=== PATIENT | female | born 1945 | race Caucasian/White ===

== ENCOUNTER 2016-06-25 05:08 | Inpatient (IN) | payer OTHER ==
[2016-05-26 14:22] VITALS: BMI 28.0
--- NOTE | 2016-05-26 15:11 | PAT Medication Instructions ---
Service Date May 26, 2016. Current Home Medication List Acetaminophen (Tylenol), 325 MG PO Q8 PRN for Pain or Fever Aspirin (Aspirin 81), 81 MG PO 3XWK Cetirizine Hcl (Zyrtec), 10 MG PO QAM Cholecalciferol (Vitamin D3), 5,000 UNIT PO QAM Estradiol (Estradiol Transdermal System), 1 PATCH TD WK Hydrocortisone (Hydrocortisone 2.5%), 1 APPLN TOP BID PRN for prn Levothyroxine Sodium (Synthroid), 100 MCG PO QAM Meloxicam (Mobic), 15 MG PO QAM Montelukast Sod (Montelukast Sodium), 10 MG PO HS Polyethylene Glycol-Propylene (Systane), 1 DROPS OPB BID Medication Instructions For Your Scheduled Surgery - Stop 2 weeks prior to surgery as instructed by surgeon: Estradiol (Estradiol Transdermal System), 1 PATCH TD WK - Hold the following medications 5 days prior to surgery: Meloxicam (Mobic), 15 MG PO QAM - Hold the following medications 24 hours prior to surgery: Hydrocortisone (Hydrocortisone 2.5%), 1 APPLN TOP BID PRN for prn - Hold the following medications the morning of surgery: Cetirizine Hcl (Zyrtec), 10 MG PO QAM Cholecalciferol (Vitamin D3), 5,000 UNIT PO QAM - Take the following medications the morning of surgery with a sip of water OTHERWISE NOTHING TO EAT OR DRINK AFTER MIDNIGHT: Levothyroxine Sodium (Synthroid), 100 MCG PO QAM Acetaminophen (Tylenol), 325 MG PO Q8 PRN for Pain or Fever (may take if needed up to 4 hours prior to surgery) Polyethylene Glycol-Propylene (Systane), 1 DROPS OPB BID Aspirin (Aspirin 81), 81 MG PO 3XWK - Take the following medications as scheduled the night before surgery: Montelukast Sod (Montelukast Sodium), 10 MG PO HS Acetaminophen (Tylenol), 325 MG PO Q8 PRN for Pain or Fever Polyethylene Glycol-Propylene (Systane), 1 DROPS OPB BID If you have any questions please call us at [phone] (Gena Molina PA-C ) or [phone] or [phone]
--- NOTE | 2016-05-26 15:48 | DIAGNOSTIC IMAGING REPORT ---
CHEST 2 VIEWS ROUTINE CLINICAL HISTORY: Preoperative chest COMPARISON STUDY: 11/25/2013 FINDINGS: The cardiac and mediastinal contours are normal. There is no evidence of focal pulmonary consolidation. There is no evidence of failure. No pleural effusions are visualized.[ Surgical clips are visualized in the right axillary region. IMPRESSION: No active disease in the chest. Electronically signed by: Jony Jeter M.D. 05/26/2016 3:47 PM
[2016-05-26 16:11] LABS: BASO % 0.9 %; BASO ABS # 0.06 K/uL (0-0.2); COMPLETE YES; EOS % 2.8 %; HEMATOCRIT 41.1 % (37-47); IG% 0.1 %; LYMPH % 27.4 %; LYMPH ABS # 1.83 K/uL (1.2-3.4); MEAN CELL VOLUME 92.6 fL (80-100); MEAN CORPUSCULAR HEMOGLOBIN 31.8 pg (25-34); MEAN CORPUSCULAR HGB CONC 34.3 g/dl (32-36); MEAN PLATELET VOLUME 9.4 fL (7.4-10.4); MONO % 7.8 %; PLATELET COUNT 244 K/uL (130-400); RED BLOOD COUNT 4.44 M/uL (4.2-5.4); WHITE BLOOD COUNT 6.68 K/uL (4.8-10.8)
[2016-05-26 16:13] LABS: URINE APPEARANCE CLEAR (CLEAR); URINE BILIRUBIN NEG (NEG); URINE COLOR YELLOW; URINE NITRITE NEG (NEG); URINE SPECIFIC GRAVITY 1.004 (1.000-1.030); UROBILINOGEN NEG (NEG)
[2016-05-26 16:14] LABS: MANUAL MICROSCOPIC REQUIRED? NO; REVIEW REQ? NO
[2016-05-26 16:21] LABS: PROTHROMBIN TIME (PATIENT) 10.6 SECONDS (9.0-12.0)
[2016-05-26 18:10] LABS: CALCIUM 9.4 mg/dl (8.5-10.1); CREATININE 0.72 mg/dl (0.60-1.20); POTASSIUM 3.8 mmol/L (3.5-5.1)
--- NOTE | 2016-06-09 11:50 | HISTORY & PHYSICAL EXAMINATION ---
DATE OF ADMISSION: 06/25/2016 CHIEF COMPLAINT: Bilateral knee pain, right greater than left. HISTORY OF PRESENT ILLNESS: This 70-year-old white female presents to the office with complaints of bilateral knee pain for many years. Pain has become worse with time. She has been doing viscosupplementation for the last several years with gradual reduction in her pain relief. She has also tried physical therapy as well as activity modification and oral anti-inflammatories without lasting success. No recent trauma. Pain is worse with ambulation. It is affecting her ADLs. Right knee is worst. X-rays have been obtained. She elects to proceed with right total knee arthroplasty on 06/25/2016 in hopes of alleviating her pain. PAST MEDICAL HISTORY: Significant for situational stress disorder, heart palpitations, benign positional vertigo, basal cell carcinoma, carotid artery stenosis, cervical spine radiculopathy, history of depression, hypertension, hypothyroidism, osteoarthritis, GERD, seborrheic dermatitis, history of sinusitis, spinal stenosis and history of TIA. PREVIOUS SURGERIES: Hepatic cyst excision, shave biopsies, cystourethroscopy, bone spur removal left foot, colonoscopy, excision of breast tissue, vaginal hysterectomy, stapedectomy, history of tubal ligation and Mohs surgery. FAMILY HISTORY: Significant for Alzheimer's disease, cancer, heart disease, hypertension, lung cancer and stroke. SOCIAL HISTORY: The patient is . Retired. No tobacco use, occasional ETOH use. ALLERGIES: KNOWN ALLERGIES TO MOLD, PNEUMOVAX, DOXYCYCLINE, TETRACYCLINE, DEXAMETHASONE, PREDNISONE, OMEPRAZOLE, DICLOFENAC, LIPITOR, BACTRIM-DS, TAPE, TREES AND LATEX. CURRENT MEDICATIONS: Tylenol p.r.n., Xanax 0.5 mg as needed for anxiety, aspirin 81 mg p.o. Thursday, Thursday, Thursday, Zyrtec 10 mg p.o. daily, vitamin D daily, clobetasol 0.05% topical gel p.r.n., estradiol patch weekly, Flonase nasal spray 50 mcg 2 sprays in each nostril daily, hydrocortisone 2.5% topical cream b.i.d., ketaconazole 2% topical shampoo twice a week, Synthroid 100 mcg p.o. daily, meloxicam 15 mg p.o. daily, Singulair 10 mg p.o. daily, Systane eyedrops t.i.d. in both eyes. REVIEW OF SYSTEMS: Significant for above-stated conditions, otherwise unremarkable. PHYSICAL EXAMINATION: GENERAL: Well-developed, well-nourished elderly white female in no acute distress. She looks younger than her stated age. Sitting on a bed. Alert and oriented. SKIN: Warm and dry with good turgor. No rashes or lesions. No ecchymosis or erythema. HEENT: Normocephalic, atraumatic. Eyes: PERRLA, EOMI. Ears: TMs intact bilaterally with good light reflexes, bilateral hearing aids present. Nares: Patent bilaterally without turbinate enlargement. Oropharynx: Without erythema or exudate. No lesions noted. Uvula midline. Oral mucosa moist. Fair dentition. Dental caps are noted. HEART: RRR. No MGR. LUNGS: Clear to auscultation bilaterally. No crackles, rhonchi or wheezing. Good air movement. ABDOMEN: Bowel sounds present x4, soft, nontender. No organomegaly. No masses. MUSCULOSKELETAL: Right knee has no intraarticular effusion. No redness or warmth. Supple motion. Full terminal extension. Flexion to greater than 90 degrees on the right. Strength is 5/5 with fair quad tone. Stable collateral ligaments. There is focal pain with palpation over the medial and lateral joint lines in the right knee. No defect in the patellar tendon or quadriceps tendon. Ambulatory with a slightly antalgic gait. NEUROLOGIC: Cranial nerves II-XII are intact. Gross sensation is intact across the lower extremities by soft touch. Peripheral pulses are 2+. DATA: Radiographic images previously obtained show advanced DJD in both knees. Periarticular osteophytes, subchondral sclerosis and joint space narrowing are present. IMPRESSION: Right knee end-stage degenerative joint disease. PLAN: Informed written consent was obtained to proceed with right total knee arthroplasty. Postoperative prescriptions for Percocet and Coumadin will be provided at discharge from the hospital. Preoperative lab work, EKG and chest x-ray have been ordered. Medical clearance has already been obtained from Dr. Petty. Prescription has been written for a rolling walker. She will likely do 2 weeks of home health and then transition to outpatient PT.
[2016-06-25] VITALS (10 sets, daily range): BP systolic 103–168; BP diastolic 63–86; PULSE 54–78; TEMP 36.2–36.8; O2SAT 94–100; Ht 167.6 cm; Wt 81.9 kg
[~2016-06-25] VITALS: Ht 167.6 cm; Wt 81.9 kg
[~2016-06-25 05:08] MED LIST: ACET-1311 PO; ANSHCCR/ TOP; ASPI-435 PO; CETI10TA10 PO; CHOL1TAB46 PO; ESTR0.034 TD; LEVO100T PO; MELO15TA4 PO; POLYSOL4 OPB; SNG10 PO
[2016-06-25] MEDS ORDERED: SCOPOLAMINE 1.5 MG TDSY TD SCH (06:00)
[2016-06-25] MEDS ORDERED: ROPIVACAINE 5MG/ML 30 ML 150 MG, BUPIVACAINE/EPINEPHR 0.5% MPF 30 ML, KETOROLAC TROMETH... INFIL SCH ×6 (06:00)
[2016-06-25] MEDS ORDERED: LACTATED RINGER'S 1000ML IV SCH (06:00)
[2016-06-25] MEDS ORDERED: TRANEXAMIC ACID INJ 1,000 MG in SODIUM CHLORIDE 0.9% 100ML 100 ML IV SCH ×2 (06:00→14:30)
[2016-06-25] MEDS ORDERED: CEFAZOLIN 2000 MG/60 ML D5W 60 ML IV SCH (06:00)
[2016-06-25] MEDS ORDERED: LACTATED RINGER'S 500 ML IV SCH (06:00)
[2016-06-25] MEDS ORDERED: BUPIVACAINE 0.5 % 5 MG/1 ML PF 10ML VIAL ONE (06:22)
[2016-06-25] MEDS ORDERED: BUPIVACAINE/EPINEPHRINE 0.25% 1:200,000 30 ML VIAL ONE (06:23)
[2016-06-25] MEDS ORDERED: DEXAMETHASONE SOD INJ 4 MG/ML VIAL ONE (06:23)
--- NOTE | 2016-06-25 06:25 | History & Physical Bridge Note ---
H&P Re-Evaluation Bridge Note: I have examined the patient, reviewed the History & Physical and in the interval since the performance of the History & Physical I have noted the following changes of clinical significance: No changes noted
[2016-06-25] MEDS ORDERED: MIDAZOLAM HCL 1 MG/ML 2ML VIAL ONE (06:38)
[2016-06-25] MEDS ORDERED: LIDOCAINE HCL 2% 2 ML VIAL (20MG/ML) ONE (06:38)
[2016-06-25] MEDS ORDERED: PROPOFOL IV EMULSION 10 MG/ML 20 ML VIAL IV ONE ×2 (06:38→07:36)
[2016-06-25] MEDS ORDERED: FENTANYL CITRATE INJ 50 MCG/1 ML 2 ML VIAL ONE (06:38)
[2016-06-25] MEDS ORDERED: ORTHO JOINT ANESTHETIC ONE (06:48)
[2016-06-25] MEDS ORDERED: EpHEDrine SULFATE INJ 50 MG/ML AMP IV PRN (08:00)
[2016-06-25] MEDS ORDERED: FENTANYL CITRATE INJ 50 MCG/1 ML 2 ML VIAL IV PRN (08:00)
[2016-06-25] MEDS ORDERED: ATROPINE SULFATE 0.1 MG/ML 5ML SYR IV PRN (08:00)
[2016-06-25] MEDS ORDERED: ONDANSETRON INJ 2 MG/ML 2 ML VIAL IV PRN ×2 (08:00→08:30)
[2016-06-25] MEDS ORDERED: POVIDONE-IODINE OP SOLN 30 ML BTL TOP ONE (08:13)
--- NOTE | 2016-06-25 08:21 | [facility] Post Operative Brief Note ---
Immediate Operative Summary Operative Date Jun 25, 2016. Pre-Operative Diagnosis Right Knee End-Stage Degnerative Joint Disease Post-Operative Diagnosis Right Knee End-Stage Degnerative Joint Disease Procedure(s) Performed Right Total Knee Arthroplasty Surgeon Dr. Wyatt Inpatient Pharmacist Surgeon(s) SOFYA Aguillon Estimated Blood Loss 50cc Findings severe PFJ disease Fluids (cc crystalloids) 1600 Specimens A. Right Knee Bone and Tissue Drains none Anesthesia spinal/sedation Complication(s) None Disposition Recovery Room / PACU
[2016-06-25] MEDS ORDERED: MAGNESIUM HYDROXIDE SUSP 30 ML UDC PO PRN (08:30)
[2016-06-25] MEDS ORDERED: ACETAMINOPHEN 325 MG TAB PO PRN (08:30)
[2016-06-25] MEDS ORDERED: ACETAMINOPHEN IV 100 ML IV PRN (08:30)
[2016-06-25] MEDS ORDERED: ALUMINUM/MAGNESIUM/SIMETH (MAALOX MAX) 30 ML UDC PO PRN (08:30)
[2016-06-25] MEDS ORDERED: DiphenhydrAMINE HCL 50 MG/ML VIAL IV PRN (08:30)
[2016-06-25] MEDS ORDERED: BISACODYL 10 MG SUPP PR PRN (08:30)
[2016-06-25] MEDS ORDERED: METOCLOPRAMIDE HCL INJ 5 MG/ML 2 ML VIAL IV PRN (08:30)
[2016-06-25] MEDS ORDERED: MoRPHine SULFATE 2 MG/ML CARP IV PRN (08:30)
--- NOTE | 2016-06-25 08:43 | OPERATIVE REPORT ---
DATE OF OPERATION: 06/25/2016 PREOPERATIVE DIAGNOSIS: Right knee end-stage degenerative joint disease. POSTOPERATIVE DIAGNOSIS: Right knee same. PROCEDURE: Right knee total knee arthroplasty using DePuy implants. SURGEON: Dr. Wyatt. STONE PLANER: Preet Fields PA-C. HISTORY OF PRESENT ILLNESS: This 70-year-old white female presented to the office with complaints of intractable right knee pain. She had tried conservative care measures including viscosupplementation and cortisone injections without lasting improvement. The patient elected to proceed with surgical intervention after being educated about potential risks and outcomes. OPERATION: The patient was administered a spinal anesthetic and then taken to the operating room where she was given sedation. She was prepped and draped in the usual sterile fashion. Please see Dr. Wyatt's operative report for specifics of the procedure. I was present for the entire case from initial patient positioning through final wound closure. Assistance was provided in tissue retraction, hemostasis, trial implant placement, final implant placement and final wound closure. The patient was taken to the recovery room in satisfactory condition. I attest to the content of the Intraoperative Record and any orders documented therein. Any exceptio ns are noted below.
--- NOTE | 2016-06-25 08:46 | OPERATIVE REPORT ---
DATE OF OPERATION: 06/25/2016 SURGEON: Diego Wyatt MD HEAD TURBINE OPERATOR: Preet Fields PA-C No resident or fellow available. PREOPERATIVE DIAGNOSIS: Osteoarthritis of right knee with valgus deformity. POSTOPERATIVE DIAGNOSIS: Same. OPERATION PERFORMED: Cemented right total knee replacement. PERIOPERATIVE SITUATION: Medically cleared female with intractable knee pain has been followed for years . She has severe patellofemoral disease bilaterally with valgus means and lateral compartment wear. At this point in time, she has failed conservative management and wants to proceed with surgical treatment at her request. DESCRIPTION OF PROCEDURE: The patient was appropriately identified, site verified, consent verified, and 2 grams of Ancef confirmed as being given. The right lower extremity was prepped and draped in the usual routine fashion. Tourniquet was inflated to 300 mmHg after exsanguination of limb with a rubber Esmarch bandage for a total of 44 minutes. Midline exposure was utilized. Parapatellar arthrotomy performed. Synovectomy completed. Osteophytes resected. Distal femur entered, resected 14 mm. Proximal tibia resected 4 mm with excellent alignment and extension gap was excellent. The femur was then sized to a 3. Appropriate cutting block applied and the anterior, posterior condylar and chamfer cuts made. The flexion gap was excellent. Some ortho mix without any allergic components was injected into the joint. This was all into the capsule posteriorly. This was then irrigated. The box cut was then made and the trial femur fit well. The tibia was then broached and reamed to a size 3 and size 10 spacer fit well. The patella tracked well. The knee was stable in full extension and mid range and full flexion. The patella was sized to a 38, resection made leaving 15 mm, seating holes made and the trial button seated. It tracked well. All trial implants were then removed. The wound was then injected with all of the ortho mix again without the elements of her allergies and then irrigated with saline and then irrigated with Betadine and then irrigated with saline again. The implants were then cemented into position. After 12 minutes, the tourniquet deflated. After 14 minutes, the knee flexed. Minor cement removal was performed. The knee was irrigated one final time with saline and Betadine and then the permanent liner seated, knee reduced and then closed. There was minimal blood loss, roughly 50 mL upon release of the tourniquet. No drain was utilized. The capsular repair was performed with #1 Ethibond, #1 Vicryl, subcutaneous layer with 2-0 Vicryl and skin with stainless steel clips. Appropriate soft tissue dressing applied and patient transferred to recovery room in satisfactory condition having tolerated the procedure well. ESTIMATED BLOOD LOSS: 50 mL. CRYSTALLOID: 1600 mL. SUMMARY OF IMPLANTS: Size 3 right posterior cruciate substituting femur, size 3 cemented rotating platform MBT keel, size 3 rotating platform, oval domed 3 pegged patella size 38 and tibial insert rotating platform, posterior cruciate substituting size 3, 10-mm thick. DVT prophylaxis will be with Coumadin and bridging Lovenox. I attest to the content of the Intraoperative Record and any orders documented therein. Any exceptions are noted below. MTDD
--- NOTE | 2016-06-25 08:59 | DIAGNOSTIC IMAGING REPORT ---
RIGHT KNEE 1 OR 2 VIEWS ROUTINE CLINICAL HISTORY: Postop examination COMPARISON: 11/27/2014 DISCUSSION: There are postsurgical changes of a total right knee arthroplasty and patellar resurfacing. The femoral and tibial components appear well seated. Overlying skin be are evident. There is air in the soft tissues consistent with recent surgery IMPRESSION: Postsurgical changes of a total right knee arthroplasty Electronically signed by: Jony Jeter M.D. 06/25/2016 8:57 AM Dictated Date/Time: 06/25/2016 8:56 AM
--- NOTE | 2016-06-25 09:14 | PROGRESS NOTE ---
DATE: 06/25/2016 Postop check status post right total knee replacement. At this point in time, she is doing well. She has no real pain. Her block is still in place. Her wound dressing is clean, dry and intact. She denies chest pain, shortness of breath, fever or chills. Vital signs are stable. She is afebrile. X-RAY: AP and lateral of the right knee reveals well fixed, well aligned knee replacement. ASSESSMENT: Doing well status post knee replacement. Continue with care pathway. Admit to floor.
--- NOTE | 2016-06-25 09:44 | Anesthesiology Progress Note ---
Anesthesia Post Op Note Date & Time Jun 25, 2016 at 09:43 Vital Signs Pain Intensity: 0 Vital Signs Past 12 Hours Date Time Temp Pulse Resp B/P Pulse Ox O2 Delivery O2 Flow Rate FiO2 06/25/16 09:30 37.2 54 16 113/61 99 Nasal Cannula 2 06/25/16 09:20 58 16 123/66 99 Nasal Cannula 2 06/25/16 09:10 57 16 131/64 99 Nasal Cannula 2 06/25/16 09:00 60 16 132/72 100 Nasal Cannula 2 06/25/16 08:50 59 16 129/69 100 Nasal Cannula 3 06/25/16 08:40 70 16 135/60 98 Nasal Cannula 3 06/25/16 08:30 72 16 125/61 97 Nasal Cannula 3 06/25/16 08:24 36.1 75 16 121/56 96 Nasal Cannula 3 06/25/16 05:56 36.8 78 18 168/86 96 Room Air Notes Mental Status: alert / awake / arousable, participated in evaluation Pt Amnestic to Procedure: Yes Nausea / Vomiting: adequately controlled Pain: adequately controlled Airway Patency, RR, SpO2: stable & adequate BP & HR: stable & adequate Hydration State: stable & adequate Neuraxial Anesthesia: was administered, sensory block is resolving Anesthetic Complications: no major complications apparent
[2016-06-25] MEDS: D5W AND 1/2NSS + 20MEQ KCL 1,000 ML IV SCH ×2 (11:01→20:44)
[2016-06-25] MEDS: MULTIVITAMIN TAB PO SCH (12:51)
[2016-06-25] MEDS: KETOROLAC TROMETHAMINE 15 MG/ML VIAL IV. SCH ×3 (12:51→23:49)
[2016-06-25] MEDS: FERROUS GLUCONATE 324 MG TAB PO SCH ×2 (12:51→17:38)
[2016-06-25] MEDS: CEFAZOLIN IV 2,000 MG in DEXTROSE 5% 50ML 50 ML IV SCH ×2 (13:24→21:40)
[2016-06-25] MEDS ORDERED: NURSING VERBAL MED ORDER ONE (13:45)
[2016-06-25] MEDS: CHECK SCOPOLAMINE PATCH PLACEMENT SCH ×2 (15:26→23:49)
[2016-06-25] MEDS ORDERED: WARF2TAB PO (15:31)
[2016-06-25] MEDS ORDERED: OXYC-57 PO (15:31)
[2016-06-25] MEDS ORDERED: WARFARIN SOD 5 MG TAB PO ONE (16:00)
[2016-06-25] MEDS: DOCUSATE SODIUM 100 MG CAP PO SCH (20:52)
[2016-06-25] MEDS ORDERED: ARTIFICIAL TEARS OP SOLN OPB SCH ×2 (21:00)
[2016-06-25] MEDS ORDERED: MONTELUKAST SOD 10 MG TAB PO SCH (21:00)
[2016-06-25] MEDS: OXYCODONE HCL IR 5 MG TAB (IMMEDIATE RELEASE) PO PRN (23:49)
[2016-06-26] MEDS ORDERED: NURSING VERBAL MED ORDER ONE
[2016-06-26] MEDS ORDERED: ZOLPIDEM TARTRATE 5 MG TAB PO PRN (00:15)
[2016-06-26] MEDS: OXYCODONE HCL IR 5 MG TAB (IMMEDIATE RELEASE) PO PRN ×2 (04:01→10:28)
[2016-06-26 04:06] VITALS: BP 117/72; PULSE 64; TEMP 36.4; O2SAT 97
[2016-06-26] MEDS: KETOROLAC TROMETHAMINE 15 MG/ML VIAL IV. SCH (05:23)
[2016-06-26] MEDS: D5W AND 1/2NSS + 20MEQ KCL 1,000 ML IV SCH (05:24)
[2016-06-26 05:47] LABS: HEMATOCRIT 30.8 % (37-47); MEAN CELL VOLUME 92.5 fL (80-100); MEAN CORPUSCULAR HEMOGLOBIN 31.2 pg (25-34); MEAN CORPUSCULAR HGB CONC 33.8 g/dl (32-36); MEAN PLATELET VOLUME 9.2 fL (7.4-10.4); PLATELET COUNT 190 K/uL (130-400); RED BLOOD COUNT 3.33 M/uL (4.2-5.4); WHITE BLOOD COUNT 10.18 K/uL (4.8-10.8)
[2016-06-26] MEDS ORDERED: LEVOTHYROXINE 100 MCG TAB PO SCH (06:00)
[2016-06-26 06:07] LABS: INR 1.1 (0.9-1.1); PROTHROMBIN TIME (PATIENT) 11.4 SECONDS (9.0-12.0)
[2016-06-26 06:19] LABS: BUN/CREATININE RATIO 15.6 (10-20); CREATININE 0.81 mg/dl (0.60-1.20); POTASSIUM 4.6 mmol/L (3.5-5.1)
--- NOTE | 2016-06-26 06:57 | PROGRESS NOTE ---
DATE: 06/26/2016 Postop day #1 status post right total knee replacement. The patient has no complaints of chest pain, shortness of breath, fever or chills. She notes that her pain is well managed. Vital signs are stable. She is afebrile. Hematocrit is stable in the 30 range. INR is 1.1 today. Chemistry is good. Neurovascular check is normal. Dressing clean, dry and intact. Calves are nontender. Abdomen is soft and nontender. ASSESSMENT: Status post right total knee replacement. PLAN: To discharge after PT, OT this morning. Coumadin and Lovenox ordered. Discharge on 4 mg Coumadin daily. Receive today's Coumadin dose per nomogram today prior to discharge and then start 4 mg on Thursday. Check INR and to do that daily and then check INR on Thursday. MTDD
[2016-06-26 06:58] VITALS: BP 98/58; PULSE 56; TEMP 36.3; O2SAT 97
[2016-06-26] MEDS ORDERED: ENOXAPARIN 30 MG/0.3 ML SYR SQ ONE (07:00)
--- NOTE | 2016-06-26 07:05 | DISCHARGE SUMMARY ---
DATE OF DISCHARGE: 06/26/2016 CHIEF COMPLAINT: Right knee pain. HISTORY OF PRESENT ILLNESS: The patient underwent elective right total knee replacement. Her hospital course has been uneventful. Her pain is well managed. PAST MEDICAL HISTORY: Remarkable for situational stress disorder, heart palpitations benign postural positional vertigo, basal cell carcinoma, carotid artery stenosis, cervical spine radiculopathy, history of depression, hypertension, hypothyroidism, osteoarthritis, GERD, seborrheic dermatitis, sinusitis, spinal stenosis and history of TIA. PREVIOUS SURGERIES: Include hepatic cyst excision skin biopsies, cystourethroscopy, bone spur removal left foot, colonoscopy, breast biopsy, vaginal hysterectomy, stapedectomy, and history of tubal ligation. FAMILY HISTORY: Remarkable for Alzheimer's disease, cancer, heart disease, hypertension, lung cancer, and stroke. SOCIAL HISTORY: Reveals she is , retired. No tobacco or alcohol use. ALLERGIES: MOLD, PNEUMOVAX, DOXYCYCLINE, TETRACYCLINE, DEXAMETHASONE, PREDNISONE, OMEPRAZOLE, DICLOFENAC, LIPITOR, AND BACTRIM-DS, TAPE, TREES AND LATEX. PREADMISSION MEDICATIONS: Include Tylenol, Xanax, aspirin, Zyrtec, vitamin D, clobetasol, estradiol patch, Flonase, hydrocortisone topical cream, ketaconazole shampoo Synthroid, Meloxicam, Singulair, and Systane. She will continue all of her medications. She will add Coumadin to keep INR 1.8-2.2 will start with 4 mg at discharge. P.r.n. Percocet for pain. REVIEW OF SYSTEMS: Noncontributory. PERTINENT PHYSICAL EXAMINATION: Reveals no chest or abdominal issues. Legs without any DVT signs. Incision clean, dry and intact. Good control of her right leg, she can do a straight leg raise and do knee bands easily to about 40-50 degrees with the dressing on. ASSESSMENT: Status post right total knee replacement. We will discharge to home today. Coumadin 4 mg daily starting Thursday. Will get nomogram dose prior to discharge today. Check INR on Thursday. MTDD
[2016-06-26] MEDS: CHECK SCOPOLAMINE PATCH PLACEMENT SCH (07:33)
--- NOTE | 2016-06-26 07:50 | Anesthesiology Progress Note ---
Anesthesia Post Op Note Date & Time Jun 26, 2016 at 07:49 Vital Signs Pain Intensity: 2.0 Vital Signs Past 12 Hours Date Time Temp Pulse Resp B/P Pulse Ox O2 Delivery O2 Flow Rate FiO2 06/26/16 06:58 36.3 56 14 98/58 97 Room Air 06/26/16 04:06 36.4 64 16 117/72 97 Room Air 06/25/16 23:40 Room Air 06/25/16 23:09 36.4 60 16 103/63 94 Room Air Notes Mental Status: alert / awake / arousable, participated in evaluation Pt Amnestic to Procedure: Yes Nausea / Vomiting: adequately controlled Pain: adequately controlled Airway Patency, RR, SpO2: stable & adequate BP & HR: stable & adequate Hydration State: stable & adequate Neuraxial Anesthesia: sensory block resolved Anesthetic Complications: no major complications apparent
[2016-06-26] MEDS ORDERED: SYSTANE~ORDER AWAITING ACTION SCH (08:00)
--- NOTE | 2016-06-26 08:13 | Discharge Instructions ---
Discharge Instructions Admission Reason for Admission: Right Knee Degenerative Joint Disease Discharge Discharge Diagnosis / Problem: Rigth knee s/p total knee arthroplasty Discharge Goals Goal(s): Decrease discomfort, Improve function, Increase independence Activity Recommendations Activity Limitations: as noted below Lifting Limitations: until after follow-up appointment Exercise/Sports Limitations: until after follow-up appointment Shower/Bathe: keep incision dry Driving or Machine Use: No driving until cleared by Dr. Wyatt Weightbearing Status: Right weightbearing (as tolerated) . Instructions / Follow-Up Instructions / Follow-Up New Medicine: * You will likely be taking one or more of these medications: 1. Percocet - Take, as directed, when you need it, every four to six hours to control your pain. 2. Iron Sulfate - Take three times each day for the month after surgery to help you replace the blood lost during surgery. 3. Coumadin - Thins your blood to lessen the chance of forming a blood clot. The dose of this is different for each person and is based on your blood tests that are done twice a week. * The most common side effects of pain medicine and iron are nausea and constipation. If nausea or constipation is too much of a problem or if you have any questions about your new medicines or doses, call [facility] at . We will try to help you manage these issues. VERY IMPORTANT TO READ AND REVIEW" Blood Clots and Blood Thinning Medicine: * You are given Coumadin during the immediate post-operative period to lessen the risk of blood clots forming in your legs and/or lungs. Coumadin is usually given for six weeks after surgery. * The prescription is for 2 mg tablets. At discharge, you should understand your dose and take it all at the same time every day, preferably after dinner. * You need to get your blood checked 1 - 2 times per week for six weeks or as directed. * If your dose needs to change, we will call you. Do not take your medication on the day of the blood test until we call you. Pain: * The immediate post-operative period after knee replacement surgery is often quite painful. * You are given a prescription for pain medicine. You should take it, as directed, when you need it, especially before physical therapy and before going to bed. Pain that interferes with sleep is very common and can last several months. * You will likely need pain medicine for the first four to six weeks. It will not stop all of the pain. The pain will lessen and as you feel better, you may change to milder pain medicine such as Tylenol. * The most common side effects of pain medicine are nausea and constipation, so don't take more than you need. Physical Therapy: * You will have physical therapy two or three times each week for four to six weeks after your surgery in order to regain your knee range of motion and to retrain your knee to work properly. * It is just as important to make sure you are getting your knee perfectly straight as it is to regain your knee bend. * Taking a pain pill an hour before therapy can help you have a more productive and comfortable therapy session if needed. Home Exercise: * You were shown a series of exercises (heel props, heel slides, etc.) in the hospital. Do these exercises three to four times each day including the exercises you were shown in physical therapy. Walking: * Get up and walk several times each day. For the first four weeks, try not to stand or walk for more than one hour at a time. If you do stand or walk for more than one hour, you will not hurt anything, but your knee and leg will likely swell. * As you feel comfortable, you may change from the walker or crutches to a cane and then to independent walking. SELF CARE INSTRUCTIONS AFTER TOTAL KNEE REPLACEMENT A. You may need to continue a physical therapy program after discharge from the hospital. There are several options available to you. Your doctor will assist you in selecting the best one for you. 1. An out-patient facility 2 to 3 times a week for therapy or home therapy. 2. Continue working on all exercises taught to you in the hospital. Your goals should be to increase bending of your knee to 90 degrees and beyond and to fully straighten your knee. B. You may progress at your own pace from walking with a walker or crutches to a cane; then to no assistive devices. C. Make walking a part of your daily routine. Be up as much as comfortable with rest periods throughout the day. Rest with leg elevation is very important. Use the ice wrap frequently for the first 3-4 weeks. D. There are no restrictions on activities. You may ride in a car, shop, participate in head start coordinator and all social activities. E. Wear the long elastic stockings (SAUL hose) 20 hours a day for six weeks after surgery. They can be removed several times a day for laundering and for a shower. F. Do not place a pillow behind your knee when resting. A pillow at your ankle is okay. VERY IMPORTANT TO READ AND REVIEW A. Take Coumadin, Aspirin or Lovenox (blood thinning medications) as directed by your doctor. If on Coumadin, have a pro-time (blood test) drawn according to your doctor's instructions. This will tell the doctor how well the Coumadin is thinning your blood. 1. YOU WILL BE GIVEN AN ORDER AT DISCHARGE FOR PT/INR (BLOOD WORK). PLEASE HAVE THIS DONE INSTRUCTED. PLEASE CALL OUR OFFICE AFTER YOUR BLOODWORK IS COMPLETE SO WE CAN TRACK YOUR RESULTS. IF YOU ARE GOING TO OUTPATIENT PHYSICAL THERAPY, YOU WILL NEED TO GO TO OUTPATIENT TESTING TO HAVE IT DRAWN. B. There are a few signs you need to watch for after you are home. Call [facility] if you notice any of the followin. Increased severe knee pain. Some pain is expected especially when you exercise. 2. Increased swelling in your leg or knee; pain or swelling of the calf muscle in either lower leg. 3. Any fluid drainage from the incision. 4. Shortness of breath or chest pain. C. Please call [facility] at if you have any concerns or questions about your operation or recovery. The doctor or his nurse will return your call promptly. D. You must take antibiotics before dental work, bladder, bowel or other surgery. Call the office to obtain a prescription at least 2 days prior to your appointment. * CALL IF INCREASED PAIN, REDNESS, DRAINAGE OR FEVER GREATER THAT 101. * Sutures should be removed 12-14 days after surgery unless you are on chronic steriods, then it will be 14-18 days after surgery. Call your doctor if: * Temperature above 101 degrees F. * Pain not relieved by pain medicine ordered. * Increased drainage or redness from incision. * Notify your doctor with any questions or concerns. Current Hospital Diet Patient's current hospital diet: AHA Diet (Heart Healthy) Discharge Diet Recommended Diet: Regular Diet Procedures Procedures Performed: Right Total Knee Arthroplasty Pending Studies Studies pending at discharge: no Medical Emergencies . Who to Call and When: Medical Emergencies: If at any time you feel your situation is an emergency, please call 911 immediately. . Non-Emergent Contact Non-Emergency issues call your: Primary Care Provider, Surgeon Call Non-Emergent contact if: temperature is above 100.5, wound has increased drainage, wound has increased redness, wound has increased pain . "Provider Documentation" section prepared by Preet Fields PA-C. VTE Core Measure Inpt VTE Proph given/why not?: Enoxaparin (Lovenox)SQ, Warfarin (Coumadin), T.E.D. Stockings, SCD's [place] Drug Monitoring Program Search Results: patient reviewed within database
--- NOTE | 2016-06-26 08:19 | Orthopedic Progress Note ---
Orthopedic Progress Note Date of Service Jun 26, 2016. Subjective Post OP Day: 1 Reports: feeling well, Denies: SOB, calf pain, chest pain, complaints, light headedness, nausea / vomiting Additional Notes: States she feels really good. Objective calves soft nontender, N/V intact, capillary refill less than 2 sec., dressing C /D/I, incision C/D/I, A&O x3, toes mobile, CMS intact Scant drainage on dressings. Able to to a straight leg raise. Date Time Temp Pulse Resp B/P Pulse Ox O2 Delivery O2 Flow Rate FiO2 06/26/16 06:58 36.3 56 14 98/58 97 Room Air 06/26/16 04:06 36.4 64 16 117/72 97 Room Air 06/25/16 23:40 Room Air 06/25/16 23:09 36.4 60 16 103/63 94 Room Air 06/25/16 18:53 36.6 68 18 118/71 94 Room Air 06/25/16 15:46 36.5 73 18 108/66 96 Room Air 06/25/16 15:15 96 Room Air 06/25/16 12:55 68 16 114/71 95 Room Air 06/25/16 11:54 56 14 126/74 99 Nasal Cannula 2.0 06/25/16 10:55 55 16 121/73 99 Ambu-Bag 2.0 06/25/16 10:25 54 16 117/75 99 Nasal Cannula 2.0 06/25/16 10:20 100 Nasal Cannula 2.0 06/25/16 09:55 100 Nasal Cannula 2.0 06/25/16 09:55 36.2 60 16 134/74 100 Nasal Cannula 2.0 06/25/16 09:30 37.2 54 16 113/61 99 Nasal Cannula 2 06/25/16 09:20 58 16 123/66 99 Nasal Cannula 2 06/25/16 09:10 57 16 131/64 99 Nasal Cannula 2 06/25/16 09:00 60 16 132/72 100 Nasal Cannula 2 06/25/16 08:50 59 16 129/69 100 Nasal Cannula 3 06/25/16 08:40 70 16 135/60 98 Nasal Cannula 3 06/25/16 08:30 72 16 125/61 97 Nasal Cannula 3 06/25/16 08:24 36.1 75 16 121/56 96 Nasal Cannula 3 Laboratory Results 24 Hours: Test 06/26/16 05:30 Hematocrit 30.8 % Hemoglobin 10.4 g/dL Prothromb Time International Ratio 1.1 Prothrombin Time 11.4 SECONDS Assessment & Plan Assessment: Right knee s/p total knee arthroplasty Plan: PT/OT today dressing changed-wound looks excellent D/C to home today with home health Coumadin per nomogram today-dose before discharge will be sent home on coumadin 4mg daily and recheck INR Thursday. Discharge Planning Discharge Planning: home with home health Pain Management: Percocet DVT Prophylaxis: TEDs, SCDs, Coumadin, Lovenox Therapy: Physical Therapy
[2016-06-26] MEDS ORDERED: OXYC-57 PO (08:26)
[2016-06-26] MEDS: DOCUSATE SODIUM 100 MG CAP PO SCH (08:33)
[2016-06-26] MEDS: MULTIVITAMIN TAB PO SCH (08:33)
[2016-06-26] MEDS ORDERED: ASPIRIN 81 MG ECTAB PO SCH (09:00)
[2016-06-26] MEDS ORDERED: CETIRIZINE HCL 10 MG TAB PO SCH (09:00)
[2016-06-26] MEDS ORDERED: WARFARIN SOD 5 MG TAB PO SCH (09:00)
[2016-06-26 09:29] VITALS: BP 90/58; PULSE 65; O2SAT 93
[2016-06-26] MEDS: FERROUS GLUCONATE 324 MG TAB PO SCH ×2 (09:38→12:47)
[2016-06-26 10:53] VITALS: BP 125/78; PULSE 70; TEMP 36.3; O2SAT 100
== END 2016-06-26 13:20 | disposition home health service (06) | DRG 470 ==
LOC: ENRESERVDT → ENRESERVTM → C.ACU 05:08 → C.3E 06:20
PROVIDERS: ADMIT Physical Medicine & Rehabilitation Sports Medicine; ATTEND Physical Medicine & Rehabilitation Sports Medicine
PROC: 0SRC0J9 Replacement of Right Knee Joint with Synthetic Substitute, Cemented, Open Approach (ICD-10-PCS; principal; 2016-06-25 07:00)
DX: M17.11 Unilateral primary osteoarthritis, right knee (principal); M21.061 Valgus deformity, not elsewhere classified, right knee; E03.9 Hypothyroidism, unspecified; L21.9 Seborrheic dermatitis, unspecified; I65.29 Occlusion and stenosis of unspecified carotid artery; F43.9 Reaction to severe stress, unspecified; Z86.73 Personal history of transient ischemic attack (TIA), and cerebral infarction without residual deficits; Z79.1 Long term (current) use of non-steroidal anti-inflammatories (NSAID); Z79.82 Long term (current) use of aspirin; Z79.890 Hormone replacement therapy; Z79.899 Other long term (current) drug therapy

== ENCOUNTER 2016-07-04 17:44 | Emergency (ER) | payer OTHER ==
[~2016-07-04] VITALS: Ht 172.7 cm; Wt 80.5 kg
[~2016-07-04 17:44] MED LIST changes: -MELO15TA4 PO; +OXYC-57 PO; +WARF2TAB PO
[2016-07-04 17:56] VITALS: TEMP 36.6; Ht 172.7 cm; Wt 80.5 kg
[2016-07-04] MEDS ORDERED: WARFARIN SOD 4 MG TAB PO STA (18:17)
--- NOTE | 2016-07-04 18:53 | EMERGENCY ROOM VISIT NOTE ---
History Report prepared by Elis: Morelia Corbin Under the Supervision of: Dr. Fernandez Lu M.D. First contact with patient: 18:01 Chief Complaint: OTHER COMPLAINT Stated Complaint: TINGLE FEELING AFTER MEDS History of Present Illness The patient is a 70 year old female who presents to the Emergency Room with complaints of an episode of side effects from medication occurring yesterday. The patient states that she had a knee replacement on June 25. She is on Coumadin post op and took her medication last night and within a minute she had a tingling sensation to her scalp. She does note that she has had unusual reactions to medications in the past. The patient is also taking Percocet and has a nausea patch. She also notes that she has been experiencing a very dry mouth since having her surgery. She denies a history of blood clots. The patient was referred to the ED by her PCP. She is on a hormone patch. The patient denies any other symptoms at this time. Source of History: patient Onset: yesterday Position: other (global) Quality: tingling, other (medication side effect) Timing: other (episode) Note: Patient has been experiencing a dry mouth. She denies any other symptoms at this time. Review of Systems See HPI for pertinent positives & negatives. A total of 10 systems reviewed and were otherwise negative. Past Medical & Surgical Medical Problems: (1) Ear surgery (2) Hysterectomy (3) Labile hypertension (4) Pneumonia (5) Right knee DJD Surgical Problems: (1) History of foot surgery (2) S/P cataract surgery Family History Diabetes mellitus FH: OR (myocardial infarction) FH: cancer FH: gallbladder disease FH: heart disease FH: lung disease Hypertension Social History Smoking Status: Never Smoker Drug Use: none Marital Status: Housing Status: lives with significant other Occupation Status: employed Current/Historical Medications Scheduled Cholecalciferol (Vitamin D3), 5,000 UNIT PO QAM Estradiol (Estradiol Transdermal System), 1 PATCH TD WK Levothyroxine Sodium (Synthroid), 100 MCG PO QAM Omeprazole (Prilosec), 20 MG PO DAILY Warfarin Sod (Jantoven), Unknown Dose PO DAILY Scheduled PRN Acetaminophen (Tylenol), 325 MG PO Q8 PRN for Pain or Fever Allergies Coded Allergies: Adhesives (Verified Allergy, Intermediate, RASH, 07/04/16) Cat Dander (Verified Allergy, Intermediate, ITCHING, 07/04/16) Molds and Smuts (Verified Allergy, Mild, Severe Congestion, 07/04/16) Atorvastatin (Verified Allergy, Unknown, muscle pain, 07/04/16) Dexamethasone (Verified Allergy, Unknown, facial swelling, periorbital. no airway edema, 07/04/16) Diclofenac (Verified Allergy, Unknown, SEVERE HEADACHE, 07/04/16) Doxycycline (Verified Allergy, Unknown, UNKNOWN, 07/04/16) Flu Virus Vaccine (Verified Allergy, Unknown, guillian barre, 07/04/16) Latex (Verified Allergy, Unknown, RASH, 07/04/16) Omeprazole (Unverified Allergy, Unknown, nausea, dizziness, 07/04/16) Pneumococcal Vaccines (Unverified Allergy, Unknown, red/raised at site, ) Prednisone (Verified Allergy, Unknown, FACIAL SWELLING WITH RASH/REDNESS, 07/04/16) Sulfamethoxazole w/Trimethoprim (Unverified Allergy, Unknown, UNKNOWN, ) Tetracycline (Verified Allergy, Unknown, UNKNOWN, 07/04/16) Uncoded Allergies: TREE (Allergy, Unknown, tested positive, 04/28/16) Physical Exam Vital Signs Date Time Temp Pulse Resp B/P Pulse Ox O2 Delivery O2 Flow Rate FiO2 07/04/16 20:00 72 22 130/88 97 07/04/16 17:56 36.6 91 18 164/84 98 Room Air Physical Exam GENERAL: Patient is in no acute distress. HEENT: No acute trauma, normocephalic atraumatic, mucous membranes moist, no nasal congestion, no scleral icterus. NECK: No stridor, no adenopathy, no meningismus, trachea is midline. LUNGS: Clear to auscultation bilaterally, no wheeze, no rhonchi, breath sounds equal. HEART: Without murmurs gallops or rubs, regular rate and rhythm. ABDOMEN: Soft, nontender, bowel sounds positive, no hernias, no peritonitis. EXTREMITIES: Evidence from recent right knee surgery, be are in place, no cellulitis, right leg slightly swollen compared to left. NEUROLOGIC: Oriented x 3, no acute motor or sensory deficits, no focal weakness. No cerebellar dysfunction. SKIN: No rash, no jaundice, no diaphoresis. Medical Decision & Procedures Medications Administered Medications (Trade) Dose Ordered Sig/Laura Route Start Time Stop Time Status Last Admin Dose Admin Warfarin Sodium (Coumadin Tab) 8 mg DAILY@16 STAT PO 07/04/16 18:17 07/04/16 18:20 DC 07/04/16 18:38 8 MG ED Course 1800: The patient was evaluated in room C1. A complete history and physical exam was performed. 1816: Coumadin Tab 8 mg PO. 1939: Reevaluated the patient. Discussed results and discharge instructions: She verbalized understanding and agreement. The patient is ready for discharge. Medical Decision The patient is a 70 year old female who presents to the ED with complaints of medication side effects. Differential diagnoses considered include medication side effect, medication reaction, anxiety, intracranial bleeding, infection. The patient presents with concern for a reaction from taking Coumadin. She is on this medication to prevent DVT as she has just had right knee surgery. The patient was due to take an 8 mg dose of Coumadin this evening. The patient's description of what happened seemed too brief and too quick after the ingestion of her Coumadin to actually be a reaction from the Coumadin, I talked to the patient about this. She is presently asymptomatic. There is no cellulitis about the surgical incision. She's not had cough or congestion or shortness of breath, there is no headache. Her neurologic exam is unremarkable. Patient was given her 8 mg of oral Coumadin, she did well without any reaction. She is being discharged home, she was reassured. Impression Primary Impression: Medication reaction Scribe Attestation The scribe's documentation has been prepared under my direction and personally reviewed by me in its entirety. I confirm that the note above accurately reflects all work, treatment, procedures, and medical decision making performed by me. Departure Information Dispostion Home / Self-Care Referrals Chrissy Carpenter M.D. (PCP) Forms HOME CARE DOCUMENTATION FORM, IMPORTANT VISIT INFORMATION, WORK / SCHOOL INSTRUCTIONS Patient Instructions My [facility] Additional Instructions meds as directed return if worsening be sure to follow with your surgeon and jarad carmona
[2016-07-04] MEDS ORDERED: PRLSR20 PO (19:07)
[2016-07-04] MEDS ORDERED: WARF4TAB8 PO (19:07)
[2016-07-04 20:00] VITALS: BP 130/88; PULSE 72; O2SAT 97
== END 2016-07-04 20:02 | disposition home or self-care (01) ==
LOC: C.EDB 17:46 → C.EDC 20:02
DX: T78.40XA Allergy, unspecified, initial encounter (principal); T45.515A Adverse effect of anticoagulants, initial encounter; X58.XXXA Exposure to other specified factors, initial encounter; Z79.899 Other long term (current) drug therapy

== ENCOUNTER → 2016-08-11 | Outpatient (CLI) | payer OTHER ==
[~2016-08-11] MED LIST changes: -ANSHCCR/ TOP; -ASPI-435 PO; -CETI10TA10 PO; -OXYC-57 PO; -POLYSOL4 OPB; +PRLSR20 PO; -SNG10 PO; -WARF2TAB PO; +WARF4TAB8 PO
== END | disposition home or self-care (01) ==
LOC: C.RDSM 16:13
PROVIDERS: ATTEND Physical Medicine & Rehabilitation Sports Medicine
DX: M25.561 Pain in right knee (principal)

== ENCOUNTER → 2017-03-23 | Outpatient (CLI) | payer OTHER | END | disposition home or self-care (01) | LOC: C.RDSM 12:23 | PROVIDERS: ATTEND Physical Medicine & Rehabilitation Sports Medicine | DX: M25.561 Pain in right knee (principal) ==

== ENCOUNTER → 2017-09-21 | Outpatient (CLI) | payer OTHER | END | disposition home or self-care (01) | LOC: C.RDSM 17:48 | PROVIDERS: ATTEND Physical Medicine & Rehabilitation Sports Medicine | DX: M17.12 Unilateral primary osteoarthritis, left knee (principal); Z96.651 Presence of right artificial knee joint ==

== ENCOUNTER 2017-10-16 04:30 | Emergency (ER) | payer OTHER ==
[~2017-10-16] VITALS: Ht 167.6 cm; Wt 81.8 kg
[2017-10-16 04:35] VITALS: TEMP 36.4; Ht 167.6 cm; Wt 81.8 kg
[2017-10-16] MEDS ORDERED: NITROFURANTOIN MONOHYDRATE 100 MG CAP PO STA (05:08)
--- NOTE | 2017-10-16 05:09 | EMERGENCY ROOM VISIT NOTE ---
ED Visit Note First contact with patient: 04:38 I saw this patient in conjunction with Jose Jansen PA-C. I agree with his decision making and treatment plan.
[2017-10-16] MEDS ORDERED: NITR-5 PO (05:19)
[2017-10-16 05:29] VITALS: BP 162/90; PULSE 68; O2SAT 98
--- NOTE | 2017-10-16 06:31 | EMERGENCY ROOM VISIT NOTE ---
ED Visit Note First contact with patient: 04:38 CHIEF COMPLAINT: Frequent and painful urination HISTORY OF PRESENT ILLNESS: This 72 year old female presents to the emergency department complaining of increased frequency of urination, burning pain with urination, and a feeling of incomplete voiding for the past 12 hours. The patient passes very small volumes of urine with each episode of voiding. The patient does not have abdominal pain. They deny back pain, fever, or vaginal discharge. The patient has had 3 urinary tract infections in the past year and this is similar. Patient feels they are not at risk for STIs. REVIEW OF SYSTEMS: A 6 system review of systems was completed with positives and pertinent negatives listed in the HPI. ALLERGIES: See EMR MEDICATIONS: See EMR PMH: See EMR SOCIAL HISTORY: Lives locally with family PHYSICAL EXAM: Vital Signs: Reviewed Nurse's notes, vital signs stable. GENERAL : White female, in no acute distress, they do not appear toxic, well-developed , well-nourished. HEART: Regular rate and rhythm without murmur gallop or rub LUNG: clear to auscultation bilateral ABDOMEN: Positive bowel sounds x 4. The abdomen is soft, mildly tender in the suprapubic area, but no masses or organs are felt. There is no CVA tenderness. The skin is clear. NEURO: Alert and oriented to person place and time. EMERGENCY DEPARTMENT COURSE: Physical exam and history were performed. Nursing notes and EMR were reviewed. The patient has dysuria symptoms for the past 12 hours. She has had UTIs in the past and states this feels similar. The patient has multiple allergies, and has evidently done very well with Macrobid in the past. She has not been on antibiotics in the past 3 months and this seems reasonable. The patient was given a first dose here and provided a continuation prescription. She was asked to follow with her primary care physician or urologist for further care management. She was otherwise invited back to the ER with any new, worsening, or concerning symptoms. Problem List Medical Problems: (1) Ear surgery Status: Resolved (2) Hysterectomy Status: Resolved (3) Labile hypertension Status: Chronic (4) Pneumonia Status: Resolved Surgical Problems: (1) History of foot surgery Status: Resolved (2) S/P cataract surgery Status: Resolved Current/Historical Medications Scheduled Cholecalciferol (Vitamin D3), 5,000 UNIT PO QAM Estradiol (Estradiol Transdermal System), 1 PATCH TD WK Levothyroxine Sodium (Synthroid), 100 MCG PO QAM Nitrofurantoin Monohyd Macrocr (Macrobid), 100 MG PO BID Omeprazole (Prilosec), 20 MG PO DAILY Warfarin Sod (Jantoven), Unknown Dose PO DAILY Scheduled PRN Acetaminophen (Tylenol), 325 MG PO Q8 PRN for Pain or Fever Allergies Coded Allergies: Adhesives (Verified Allergy, Intermediate, RASH, 07/04/16) Cat Dander (Verified Allergy, Intermediate, ITCHING, 07/04/16) Molds and Smuts (Verified Allergy, Mild, Severe Congestion, 07/04/16) Atorvastatin (Verified Allergy, Unknown, muscle pain, 07/04/16) Dexamethasone (Verified Allergy, Unknown, facial swelling, periorbital. no airway edema, 07/04/16) Diclofenac (Verified Allergy, Unknown, SEVERE HEADACHE, 07/04/16) Doxycycline (Verified Allergy, Unknown, UNKNOWN, 07/04/16) Flu Virus Vaccine (Verified Allergy, Unknown, guillian barre, 07/04/16) Latex (Verified Allergy, Unknown, RASH, 07/04/16) Omeprazole (Unverified Allergy, Unknown, nausea, dizziness, 07/04/16) Pneumococcal Vaccines (Unverified Allergy, Unknown, red/raised at site, ) Prednisone (Verified Allergy, Unknown, FACIAL SWELLING WITH RASH/REDNESS, 07/04/16) Sulfamethoxazole w/Trimethoprim (Unverified Allergy, Unknown, UNKNOWN, ) Tetracycline (Verified Allergy, Unknown, UNKNOWN, 07/04/16) Uncoded Allergies: TREE (Allergy, Unknown, tested positive, 04/28/16) Vital Signs Date Time Temp Pulse Resp B/P (MAP) Pulse Ox O2 Delivery O2 Flow Rate FiO2 10/16/17 05:29 68 20 162/90 98 10/16/17 04:35 36.4 74 20 173/90 97 Room Air Laboratory Results Test 10/16/17 04:50 Urine Color YELLOW Urine Appearance CLEAR (CLEAR) Urine pH 6.5 (4.5-7.5) Urine Specific [place] 1.008 (1.000-1.030) Urine Protein NEG (NEG) Urine Glucose (UA) NEG (NEG) Urine Ketones NEG (NEG) Urine Occult Blood 2+ (NEG) Urine Nitrite NEG (NEG) Urine Bilirubin NEG (NEG) Urine Urobilinogen NEG (NEG) Urine Leukocyte Esterase LARGE (NEG) Urine WBC (Auto) >30 /hpf (0-5) Urine RBC (Auto) 0-4 /hpf (0-4) Urine Hyaline Casts (Auto) 0 /lpf (0-5) Urine Epithelial Cells (Auto) >30 /lpf (0-5) Urine Bacteria (Auto) NEG (NEG) Urine Renal Epithelial Cells >30 /lpf (0-5) Medications Administered Medications (Trade) Dose Ordered Sig/Laura Route Start Time Stop Time Status Last Admin Dose Admin Nitrofurantoin Macrocrystals (Macrobid Cap) 100 mg NOW STAT PO 10/16/17 05:08 10/16/17 05:09 DC 10/16/17 05:11 100 MG Departure Information Impression Primary Impression: Urinary tract infection Dispostion Home / Self-Care Condition GOOD Prescriptions Nitrofurantoin Monohyd Macrocr (Macrobid) 100 Mg Cap 100 MG PO BID for 7 Days, #14 CAP Prov: Jose Jansen PA-C 10/16/17 Referrals Stu An M.D. (PCP) Forms HOME CARE DOCUMENTATION FORM, IMPORTANT VISIT INFORMATION Patient Instructions My [facility] Additional Instructions You were seen and evaluated today on an emergency basis only. This is not a substitute for, or an effort to provide, complete comprehensive medical care. It is not possible to recognize and treat all injuries or illnesses in a single emergency department visit. For this reason it is recommended that you followup with your primary care physician with any ongoing or persisting symptoms. Take Macrobid 100 mg twice daily for the next 7 days You are welcome to return to the emergency department anytime with new, worsening, or concerning symptoms.
== END 2017-10-16 05:30 | disposition home or self-care (01) ==
LOC: C.EDB 04:31 → C.EDA 05:30
DX: N39.0 Urinary tract infection, site not specified (principal); Z87.440 Personal history of urinary (tract) infections; Z79.01 Long term (current) use of anticoagulants; Z91.048 Other nonmedicinal substance allergy status; Z88.8 Allergy status to other drugs, medicaments and biological substances; Z88.1 Allergy status to other antibiotic agents; Z88.7 Allergy status to serum and vaccine; Z91.040 Latex allergy status